=== PATIENT | female | born 1980 | race African-American/Black ===

== ENCOUNTER 2018-03-22 08:41 | Emergency (ER) | payer OTHER ==
[~2018-03-22] VITALS: Ht 162.6 cm; Wt 49.0 kg
[~2018-03-22 08:41] MED LIST: ABILIFY15 MG PO; AMBIEN10 MG PO; ATIVAN1 MG PO; BENADRYL25 MG PO; Motrin PO; PREFERA-OB P1 TABLET PO; Percocet 5/325,Endoc PO
[2018-03-22] MEDS ORDERED: PERCOCET 5/31 TABLET PO (10:15)
[2018-03-22 10:44] VITALS: BP 140/82
== END 2018-03-22 10:44 | disposition home or self-care (01) ==
LOC: EME 08:41
DX: S32.2XXA Fracture of coccyx, initial encounter for closed fracture (principal); X58.XXXA Exposure to other specified factors, initial encounter; F32.9 Major depressive disorder, single episode, unspecified; F31.9 Bipolar disorder, unspecified; F17.200 Nicotine dependence, unspecified, uncomplicated; Z91.012 Allergy to eggs; Z91.013 Allergy to seafood
CPT/HCPCS: 72100; 72220; 99281; 99284